=== PATIENT | male | born 1935 | race Caucasian/White ===

== ENCOUNTER 2018-02-16 11:49 | Inpatient (IN) ==
[2018-02-16] MEDS ORDERED: SODIUM CHLORIDE 0.9% 500 ML IV STA (12:23)
[2018-02-16 12:29] LABS: Basophils % 0.5 % (0.0-0.8); Eosinophils # 0.1 10*3/uL (0.0-0.87); Eosinophils % 1.1 % (0.00-10.9); Hematocrit 34.5 VOL% (42.0-52.0); Hemoglobin 11.8 GM/DL (14.0-18.0); Immature Granulocytes % 0.4 %; Immature Granulocytes Absolute 0.02 #; Lymphocytes # 1.2 10*3/uL (1.4-4.0); Lymphocytes % 22.3 % (21.2-54.2); Mean Corpuscular HGB Conc 34.2 GM/DL (32-36); Mean Corpuscular Hemoglobin 33 PG (27-34); Mean Corpuscular Volume 96.9 FL (87-102); Monocytes # 0.4 10*3/uL (0.11-0.8); Monocytes % 6.7 % (1.7-12.7); Neutrophils # 3.8 10*3/uL (1.4-7.4); Platelet Count 133 T/CUMM (130-400); Red Blood Count 3.56 MC/CUMM (3.8-5.5); Red Cell Distribution Width 13.5 % (9.3-17.3); White Blood Count 5.6 T/CUMM (4-12)
[2018-02-16 12:36] LABS: PT Patient Result 10.4 SECS
[2018-02-16 12:50] LABS: Alanine Aminotransferase 20 U/L (16-61); Albumin 3.9 G/DL (3.4-5.0); Alkaline Phosphatase 60 U/L (45-117); Aspartate Amino Transferase 12 U/L (0-37); Blood Urea Nitrogen 25 MG/DL (7-18); Calcium 8.8 MG/DL (8.5-10.1); Glucose 120 MG/DL (74-106); Osmolality,Calculated 287.1 MOS/KG (273-304); Potassium 3.9 MMOL/L (3.5-5.1); Sodium 142 MMOL/L (136-145); Total Protein 6.4 G/DL (6.4-8.3); Troponin I Only < 0.015 NG/ML (0.00-0.045)
[2018-02-16] MEDS ORDERED: ZALEPLON 5 MG CAPSULE PO PRN (14:25)
[2018-02-16] MEDS ORDERED: diphenhydrAMINE CAP 25 MG CAPSULE PO PRN (14:25)
[2018-02-16] MEDS ORDERED: ONDANSETRON 4 MG/2 ML VIAL IV PRN (14:25)
[2018-02-16] MEDS ORDERED: guaiFENesin/DM ER 600-30 MG TABLET PO PRN (14:25)
[2018-02-16] MEDS ORDERED: LACTULOSE 20 GM/30 ML UDCUP PO PRN (14:25)
[2018-02-16] MEDS ORDERED: MAGNESIUM SULF RIDER 4 GM in PREMIX 1 EACH IV PRN ×2 (14:25→17:59)
[2018-02-16] MEDS ORDERED: BISACODYL 5 MG TABLET PO PRN (14:25)
[2018-02-16] MEDS ORDERED: ACETAMINOPHEN 325 MG TABLET PO PRN (14:25)
[2018-02-16] MEDS ORDERED: DOCUSATE SODIUM 100 MG CAPSULE PO PRN (14:25)
[2018-02-16] MEDS ORDERED: MAGNESIUM SULF RIDER 2 GM in PREMIX 1 EACH IV PRN ×2 (14:25→17:59)
[2018-02-16] MEDS ORDERED: NITROGLYCERIN SL 0.4 MG TABLET SL PRN (15:08)
[2018-02-16] MEDS: SODIUM CHLORIDE 0.9% 1,000 ML IV SCH (16:34)
[2018-02-16 17:10] LABS: Apearance,Urine CLEAR (Clear); Bilirubin,Urine Negative (Negative); Blood, Urine Negative (Negative); Glucose,Urine (UA) Negative (Negative); Ketones,Urine 5 mg/dL (Negative); Mucus,Urine Occasional /LPF (Occasional); Nitrite,Urine Negative (Negative); Protein,Urine Negative; RBC,Urine <1 /HPF (0-4); Urine Color Yellow (Yellow); Urine Specific Gravity 1.008 (1.001-1.035); Urine Urobilinogen < 2.0 EU/DL (0.2-1.0); WBC,Urine 1 /HPF (0-6)
[2018-02-16] MEDS ORDERED: SODIUM CHLORIDE 0.45% 1,000 ML IV SCH (17:59)
[2018-02-16 19:38] LABS: Troponin I Only < 0.015 NG/ML (0.00-0.045)
[2018-02-16] MEDS: levETIRAcetam 500 MG TABLET PO SCH (22:20)
[2018-02-17 05:05] LABS: Basophils % 0.4 % (0.0-0.8); Eosinophils # 0.1 10*3/uL (0.0-0.87); Hematocrit 36.1 VOL% (42.0-52.0); Hemoglobin 12.1 GM/DL (14.0-18.0); Immature Granulocytes % 0.4 %; Immature Granulocytes Absolute 0.03 #; Lymphocytes # 1.3 10*3/uL (1.4-4.0); Lymphocytes % 16.1 % (21.2-54.2); Mean Corpuscular HGB Conc 33.5 GM/DL (32-36); Mean Corpuscular Hemoglobin 33 PG (27-34); Mean Corpuscular Volume 98.6 FL (87-102); Mean Platelet Volume 12.2 FL (9.6-12.0); Monocytes # 0.6 10*3/uL (0.11-0.8); Monocytes % 7.5 % (1.7-12.7); Neutrophils # 5.9 10*3/uL (1.4-7.4); Neutrophils % 74.6 % (38.7-73.9); Platelet Count 128 T/CUMM (130-400); Red Blood Count 3.66 MC/CUMM (3.8-5.5); Red Cell Distribution Width 13.4 % (9.3-17.3); White Blood Count 7.9 T/CUMM (4-12)
[2018-02-17 05:46] LABS: Calcium 8.7 MG/DL (8.5-10.1); Osmolality,Calculated 287.8 MOS/KG (273-304)
[2018-02-17] MEDS ORDERED: CLOPIDOGREL 75 MG TABLET PO SCH (09:00)
[2018-02-17] MEDS ORDERED: ALFUZOSIN 10 MG TABLET PO SCH (09:00)
[2018-02-17] MEDS ORDERED: ceFAZolin 1,000 MG VIAL ONE (10:40)
[2018-02-17] MEDS ORDERED: LIDOCAINE 1% 20 ML VIAL ONE (10:40)
[2018-02-17] MEDS ORDERED: HEPARIN/NACL 0.9% 2 UNITS/ML 500 ML IV ONE (10:40)
[2018-02-17] MEDS: ASPIRIN CHEW 81 MG TABLET PO SCH (10:54)
[2018-02-17] MEDS: levETIRAcetam 500 MG TABLET PO SCH ×2 (10:54→21:20)
[2018-02-17] MEDS ORDERED: ceFAZolin 1,000 MG in SYRINGE 1 EACH IV ONE (11:05)
[2018-02-17] MEDS ORDERED: ceFAZolin 1,000 MG VIAL IRRIG ONE (11:05)
[2018-02-17] MEDS ORDERED: MIDAZOLAM 2 MG/2 ML VIAL ONE (11:25)
[2018-02-17] MEDS ORDERED: fentaNYL 100 MCG/2 ML VIAL ONE (11:25)
[2018-02-17] MEDS ORDERED: TISSUE ADHESIVE 1 EACH APPLICATOR TOP ONE (12:10)
[2018-02-17] MEDS: LOVASTATIN 20 MG TABLET PO SCH (13:51)
[2018-02-17] MEDS: MULTIVITAMIN (CENTRUM) TABLET PO SCH (13:51)
[2018-02-17] MEDS: BICALUTAMIDE 50 MG TABLET PO SCH (13:51)
[2018-02-17] MEDS: METOPROLOL SUCCINATE XL 25 MG TABLET PO SCH (13:51)
[2018-02-17] MEDS: SODIUM CHLORIDE 0.9% 1,000 ML IV SCH (13:51)
[2018-02-17] MEDS: POTASSIUM GLUCONATE 500 MG TABLET PO SCH (13:51)
[2018-02-17] MEDS ORDERED: MAGNESIUM HYDROXIDE SUSP 30 ML UDCUP PO PRN (14:13)
[2018-02-17] MEDS: ceFAZolin 1,000 MG in SYRINGE 1 EACH IV SCH (17:41)
[2018-02-17] MEDS ORDERED: TAMSULOSIN 0.4 MG CAPSULE PO SCH (21:00)
[2018-02-18 03:45] LABS: Basophils % 0.3 % (0.0-0.8); Eosinophils # 0.1 10*3/uL (0.0-0.87); Eosinophils % 1.1 % (0.00-10.9); Hematocrit 34.8 VOL% (42.0-52.0); Immature Granulocytes % 0.3 %; Immature Granulocytes Absolute 0.03 #; Lymphocytes # 1.2 10*3/uL (1.4-4.0); Lymphocytes % 13.4 % (21.2-54.2); Mean Corpuscular HGB Conc 34.5 GM/DL (32-36); Mean Corpuscular Hemoglobin 33 PG (27-34); Mean Corpuscular Volume 94.8 FL (87-102); Mean Platelet Volume 12.6 FL (9.6-12.0); Monocytes # 0.7 10*3/uL (0.11-0.8); Neutrophils # 7.1 10*3/uL (1.4-7.4); Neutrophils % 76.9 % (38.7-73.9); Platelet Count 127 T/CUMM (130-400); Red Blood Count 3.67 MC/CUMM (3.8-5.5); Red Cell Distribution Width 13.2 % (9.3-17.3); White Blood Count 9.2 T/CUMM (4-12)
[2018-02-18 04:11] LABS: Calcium 8.9 MG/DL (8.5-10.1); Osmolality,Calculated 283.1 MOS/KG (273-304); Potassium 3.8 MMOL/L (3.5-5.1)
[2018-02-18] MEDS ORDERED: ceFAZolin 1,000 MG in SYRINGE 1 EACH IV SCH (04:30)
[2018-02-18] MEDS: ceFAZolin 1,000 MG in SYRINGE 1 EACH IV SCH (04:30)
[2018-02-18] MEDS: ASPIRIN CHEW 81 MG TABLET PO SCH (08:57)
[2018-02-18] MEDS: levETIRAcetam 500 MG TABLET PO SCH (08:57)
[2018-02-18] MEDS: LOVASTATIN 20 MG TABLET PO SCH (08:57)
[2018-02-18] MEDS: POTASSIUM GLUCONATE 500 MG TABLET PO SCH (08:57)
[2018-02-18] MEDS: MULTIVITAMIN (CENTRUM) TABLET PO SCH (08:57)
[2018-02-18] MEDS: METOPROLOL SUCCINATE XL 25 MG TABLET PO SCH (08:57)
[2018-02-18] MEDS: BICALUTAMIDE 50 MG TABLET PO SCH (09:00)
[2018-02-18 11:39] VITALS: BP 108/50
== END 2018-02-18 15:00 | disposition home or self-care (01) | DRG 244 ==
LOC: EDBD → EDUNIT# → N.EDINP 11:49 → N.ED 11:49 → N.EDINP 17:50 → N.TELEN 18:01
PROVIDERS: ADMIT Internal Medicine Cardiovascular Disease; ATTEND Internal Medicine Cardiovascular Disease

== ENCOUNTER 2019-07-17 06:33 | Observation (INO) ==
[2019-07-17] MEDS ORDERED: NITROGLYCERIN SL 0.4 MG TABLET SL PRN (06:57)
[2019-07-17 07:17] LABS: Basophils % 0.2 % (0.0-0.8); Eosinophils % 0.3 % (0.00-10.9); Hemoglobin 13.5 GM/DL (14.0-18.0); Immature Granulocytes % 0.5 %; Immature Granulocytes Absolute 0.05 #; Lymphocytes # 0.9 10*3/uL (1.4-4.0); Mean Corpuscular HGB Conc 33.8 GM/DL (32-36); Mean Corpuscular Volume 96.4 FL (87-102); Mean Platelet Volume 11.6 FL (9.6-12.0); Monocytes % 7.7 % (1.7-12.7); Neutrophils % 83.3 % (38.7-73.9); Platelet Count 156 T/CUMM (130-400); Red Blood Count 4.15 MC/CUMM (3.8-5.5); Red Cell Distribution Width 12.9 % (9.3-17.3); White Blood Count 10.7 T/CUMM (4-12)
[2019-07-17 07:40] LABS: Calcium 8.9 MG/DL (8.5-10.1)
[2019-07-17] MEDS ORDERED: ACETAMINOPHEN 325 MG TABLET PO PRN (08:22)
[2019-07-17] MEDS ORDERED: diphenhydrAMINE CAP 25 MG CAPSULE PO PRN (08:22)
[2019-07-17] MEDS ORDERED: MORPHINE 4 MG/1 ML VIAL IV PRN ×2 (08:22→08:26)
[2019-07-17] MEDS ORDERED: ZALEPLON 5 MG CAPSULE PO PRN (08:22)
[2019-07-17] MEDS ORDERED: ONDANSETRON 4 MG/2 ML VIAL IV PRN (08:22)
[2019-07-17] MEDS ORDERED: MAGNESIUM SULF RIDER 2 GM in PREMIX 1 EACH IV PRN ×2 (08:22→08:26)
[2019-07-17] MEDS ORDERED: guaiFENesin/DM ER 600-30 MG TABLET PO PRN (08:22)
[2019-07-17] MEDS ORDERED: DOCUSATE SODIUM 100 MG CAPSULE PO PRN (08:22)
[2019-07-17] MEDS ORDERED: MAGNESIUM SULF RIDER 4 GM in PREMIX 1 EACH IV PRN ×2 (08:22→08:26)
[2019-07-17] MEDS ORDERED: PROMETHAZINE 25 MG TABLET PO PRN (08:22)
[2019-07-17] MEDS ORDERED: DEXTROSE 5% NACL 0.9% 1,000 ML IV SCH (08:30)
[2019-07-17 08:59] LABS: Risk Ratio 2.56; Thyroid Stimulating Hormone 1.81 uIU/ml (0.358-3.74); VLDL CHOLESTEROL 34.4 MG/DL
[2019-07-17] MEDS ORDERED: SIMVASTATIN 20 MG TABLET PO SCH ×2 (09:00→21:00)
[2019-07-17] MEDS ORDERED: INFLUENZA VIRUS VACCINE 0.5 ML SYRINGE IM ONE (10:24)
[2019-07-17] MEDS ORDERED: AZITHROMYCIN 250 MG TABLET PO ONE (10:26)
[2019-07-17] MEDS: ASPIRIN CHEW 81 MG TABLET PO SCH (10:27)
[2019-07-17] MEDS: CLOPIDOGREL 75 MG TABLET PO SCH (10:27)
[2019-07-17] MEDS: levETIRAcetam 500 MG TABLET PO SCH ×2 (10:27→20:13)
[2019-07-17] MEDS: BICALUTAMIDE 50 MG TABLET PO SCH (10:27)
[2019-07-17] MEDS: MULTIVITAMIN (CENTRUM) TABLET PO SCH (10:27)
[2019-07-17] MEDS: METOPROLOL SUCCINATE XL 50 MG TABLET PO SCH (10:28)
[2019-07-17] MEDS: PANTOPRAZOLE 40 MG TABLET PO SCH ×2 (11:38→11:53)
[2019-07-17] MEDS: POTASSIUM GLUCONATE 500 MG TABLET PO SCH (11:53)
[2019-07-17] MEDS: ENOXAPARIN 80 MG/0.8 ML SYRINGE SUBCUT SCH (11:53)
[2019-07-17] MEDS: FUROSEMIDE 20 MG TABLET PO SCH (11:53)
[2019-07-17] MEDS: SODIUM CHLORIDE 0.9% 1,000 ML IV SCH ×2 (11:54→20:11)
[2019-07-17] MEDS: OMEGA 3 ACID ETHYL ESTERS 1 GM CAPSULE PO SCH ×2 (12:52→20:13)
[2019-07-17] MEDS ORDERED: ALBUTEROL NEB SOLN 5 MG/ML 20 ML/BOTTLE CONT NEB SCH (13:00)
[2019-07-17] MEDS: ALBUTEROL 2.5 MG/3 ML NEB RESP TX SCH ×2 (14:40→19:56)
[2019-07-17] MEDS: GABAPENTIN 100 MG CAPSULE PO SCH ×2 (16:03→20:13)
[2019-07-17 16:32] LABS: Basophils % 0.2 % (0.0-0.8); Eosinophils % 0.1 % (0.00-10.9); Hematocrit 38.4 VOL% (42.0-52.0); Hemoglobin 12.9 GM/DL (14.0-18.0); Immature Granulocytes % 0.4 %; Immature Granulocytes Absolute 0.04 #; Lymphocytes # 1.1 10*3/uL (1.4-4.0); Lymphocytes % 10.4 % (21.2-54.2); Mean Corpuscular HGB Conc 33.6 GM/DL (32-36); Mean Corpuscular Volume 96.5 FL (87-102); Mean Platelet Volume 11.4 FL (9.6-12.0); Neutrophils % 78.9 % (38.7-73.9); Platelet Count 149 T/CUMM (130-400); Red Blood Count 3.98 MC/CUMM (3.8-5.5); Red Cell Distribution Width 12.9 % (9.3-17.3); White Blood Count 10.6 T/CUMM (4-12)
[2019-07-17 20:49] LABS: Apearance,Urine CLEAR (Clear); Bilirubin,Urine Negative (Negative); Blood, Urine Small mg/dL (Negative); Glucose,Urine (UA) Negative (Negative); Ketones,Urine Negative (Negative); Nitrite,Urine Negative (Negative); Protein,Urine Negative; RBC,Urine 1 /HPF (0-4); Squamous Epithelial Cell,Urine Occasional /HPF (0-10); Urine Color Straw (Yellow); Urine Specific Gravity 1.005 (1.001-1.035); Urine Urobilinogen < 2.0 EU/DL (0.2-1.0)
[2019-07-17] MEDS ORDERED: TAMSULOSIN 0.4 MG CAPSULE PO SCH (21:00)
[2019-07-18] MEDS: ALBUTEROL 2.5 MG/3 ML NEB RESP TX SCH ×2 (00:37→07:53)
[2019-07-18] MEDS: SODIUM CHLORIDE 0.9% 1,000 ML IV SCH (03:48)
[2019-07-18 04:56] LABS: Basophils % 0.2 % (0.0-0.8); Eosinophils % 0.1 % (0.00-10.9); Hematocrit 36.2 VOL% (42.0-52.0); Hemoglobin 11.8 GM/DL (14.0-18.0); Immature Granulocytes % 0.2 %; Immature Granulocytes Absolute 0.02 #; Lymphocytes # 1.2 10*3/uL (1.4-4.0); Lymphocytes % 13.3 % (21.2-54.2); Mean Corpuscular HGB Conc 32.6 GM/DL (32-36); Mean Corpuscular Volume 97.3 FL (87-102); Mean Platelet Volume 11.8 FL (9.6-12.0); Monocytes % 11.4 % (1.7-12.7); Neutrophils % 74.8 % (38.7-73.9); Platelet Count 122 T/CUMM (130-400); Red Blood Count 3.72 MC/CUMM (3.8-5.5); White Blood Count 8.8 T/CUMM (4-12)
[2019-07-18 06:11] LABS: Blood Urea Nitrogen 15 MG/DL (7-18); Calcium 8.5 MG/DL (8.5-10.1); Estimated Glom Filtration Rate 96 ML/MIN; Glucose 117 MG/DL (74-106); Osmolality,Calculated 284.1 MOS/KG (273-304); Troponin I < 0.015 NG/ML (0.00-0.045)
[2019-07-18 08:10] VITALS: BP 109/50
[2019-07-18] MEDS ORDERED: AZITHROMYCIN 250 MG TABLET PO SCH (09:00)
[2019-07-18] MEDS: levETIRAcetam 500 MG TABLET PO SCH (09:12)
[2019-07-18] MEDS: MULTIVITAMIN (CENTRUM) TABLET PO SCH (09:12)
[2019-07-18] MEDS: GABAPENTIN 100 MG CAPSULE PO SCH (09:12)
[2019-07-18] MEDS: ENOXAPARIN 80 MG/0.8 ML SYRINGE SUBCUT SCH (09:13)
[2019-07-18] MEDS: ASPIRIN CHEW 81 MG TABLET PO SCH (09:13)
[2019-07-18] MEDS: METOPROLOL SUCCINATE XL 50 MG TABLET PO SCH (09:13)
[2019-07-18] MEDS: FUROSEMIDE 20 MG TABLET PO SCH (09:13)
[2019-07-18] MEDS: POTASSIUM GLUCONATE 500 MG TABLET PO SCH (09:13)
[2019-07-18] MEDS: CLOPIDOGREL 75 MG TABLET PO SCH (09:13)
[2019-07-18] MEDS: BICALUTAMIDE 50 MG TABLET PO SCH (09:13)
[2019-07-18] MEDS: OMEGA 3 ACID ETHYL ESTERS 1 GM CAPSULE PO SCH (09:13)
[2019-07-18] MEDS: PANTOPRAZOLE 40 MG TABLET PO SCH ×2 (09:13)
== END 2019-07-18 12:07 | disposition home or self-care (01) ==
LOC: N.EDINP 06:33 → N.ED 06:33 → N.TELES 08:59
PROVIDERS: ADMIT Internal Medicine Cardiovascular Disease; ATTEND Internal Medicine Cardiovascular Disease